=== PATIENT | male | born 1995 | race African-American/Black ===

== ENCOUNTER 2019-10-21 12:38 | Emergency (ER) | payer OTHER ==
[2019-10-21 12:47] VITALS: BP 120/75; PULSE 86; TEMP 102.9; BMI 20.7
[2019-10-21] MEDS ORDERED: IBUPROFEN 600 MG TABLET (FP) PO ONE ×2 (13:07→13:09)
--- NOTE | 2019-10-21 13:09 | PDOC ---
History of Present Illness - General Chief Complaint: Cold Symptoms Stated Complaint: COLD SYMPTOMS Time Seen by Provider: 10/21/19 12:51 - History of Present Illness Initial Comments: 10/21/19 13:11 Patient is a 24-year-old male who presents to the ED with fever, body aches, cough and sore throat for the last 4 to 5 days. He states his daughter had similar symptoms and he believes he got it from her. His girlfriend also has the same symptoms. He has been taking Tylenol and he took some about 3 hours ago. He denies any shortness of breath. The patient denies any past medical history or allergies to medications. He is a smoker. Past History - Past Medical History Allergies/Adverse Reactions: Allergies Allergy/AdvReac Type Severity Reaction Status Date / Time No Known Allergies Allergy Verified 10/21/19 12:47 Home Medications: Ambulatory Orders NK [No Known Home Medication] 10/21/19 COPD: No - Psycho Social/Smoking Cessation Hx Smoking History: Never smoked Review of Systems - Review of Systems Comments:: 10/21/19 13:12 - Review of Systems Able to Perform ROS?: Yes Constitutional: No: Chills, Loss of Appetite, Night Sweats, Weakness, Positive: Fever HEENTM: No: Eye Pain, Vision changes, Ear Pain, Throat Swelling, Mouth Pain, Difficulty Swallowing, Positive: Throat Pain Respiratory: No: Shortness of Breath, Wheezing, Sputum Production, Positive: Cough Cardiac (ROS): No: Chest Pain, Chest Tightness, Palpitations, Irregular Heart Beat, Edema ABD/GI: No: Nausea, Vomiting, Abdominal Pain, Diarrhea : No Dysuria, No Hematuria, No Frequency, No Urgency, No Vaginal Discharge/ Pain, No Penile Discharge/Pain Musculoskeletal: No: Muscle Pain, Back Pain, Joint Pain, Muscle Weakness, Neck Pain Integumentary: No: Lesions, Rash Neurological: No: Headache, Numbness, Tingling, Weakness, Speech Difficulties *Physical Exam - Vital Signs Last Vital Signs Temp Pulse Resp BP Pulse Ox 102.9 F H 86 18 120/75 99 10/21/19 12:45 10/21/19 12:45 10/21/19 12:45 10/21/19 12:45 10/21/19 12:45 - Physical Exam 10/21/19 13:13 - Physical Exam General Appearance: Nourished, Appropriately Dressed, No Distress HEENT: EOMI, Normal Voice, No Pharyngeal Erythema, No Muffled/Hoarse voice, No Tonsillar Exudate, No Tonsillar Erythema, No Nasal Congestion, No Rhinorrhea, Hearing Grossly Normal, b/l TMs obstructed by impacted cerumen Neck: Supple, No Lymphadenopathy (R), + anterior cervical Lymphadenopathy (L), No Rigidity, No Decreased range of motion Respiratory/Chest: Lungs Clear, Normal Breath Sounds. No Respiratory Distress, No Accessory Muscle Use Cardiovascular: Regular Rhythm, Regular Rate, S1, S2 Musculoskeletal: Normal Inspection. No Decreased Range of Motion Extremity: Normal Capillary Refill, Normal Inspection Integumentary: Normal Color, Dry. 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 He has been made aware that he likely has influenza but since he is 4 to 5 days since his symptoms started, he has not a candidate for Tamiflu. He has been encouraged to drink plenty of fluids, take Tylenol and ibuprofen for fevers or body aches and get plenty of rest. He should follow-up with his primary care doctor within 1 to 2 days for repeat evaluation. Discharge - Discharge Information Problems reviewed: Yes Clinical Impression/Diagnosis: Flu-like symptoms Fever Qualifiers: Fever type: due to other condition Qualified Code(s): R50.81 - Fever presenting with conditions classified elsewhere Condition: Stable Disposition: HOME - Follow up/Referral - Patient Discharge Instructions Patient Printed Discharge Instructions: DI for Viral Upper Respiratory Infection -- Adult Additional Instructions: Get plenty of rest and drink plenty of fluids. Take ibuprofen or Tylenol for fevers and body aches. Follow-up with your primary doctor within 1 to 2 days for repeat evaluation. You likely have the flu, but since her symptoms have been ongoing for 4 to 5 days you are not a candidate for Tamiflu treatment As the treatment should be started within the first 48 hours. - Post Discharge Activity Work/Back to School Note: Back to Work
== END 2019-10-21 13:18 | disposition home or self-care (01) ==
LOC: JERFT 12:38
DX: J11.1 Influenza due to unidentified influenza virus with other respiratory manifestations (principal); F17.210 Nicotine dependence, cigarettes, uncomplicated
CPT/HCPCS: 99282-25

== ENCOUNTER 2025-03-29 07:56 | Emergency (ER) | payer OTHER ==
[2025-03-29 08:02] VITALS: BP 138/74; PULSE 74; RESP 18; TEMP 97.8; BMI 22.3
[2025-03-29] MEDS ORDERED: IBUPROFEN 600 MG TABLET (FP) PO ONE (09:12)
[2025-03-29] MEDS ORDERED: LIDOCAINE 4% PATCH TP ONE (09:13)
[2025-03-29] MEDS ORDERED: CycloBENZAprine HCL 10 MG TABLET (FP) ONE (09:13)
[2025-03-29] MEDS: LIDOCAINE 4% PATCH TP ONE (09:20)
[2025-03-29] MEDS: IBUPROFEN 600 MG TABLET (FP) PO ONE (09:25)
[2025-03-29] MEDS: CycloBENZAprine HCL 10 MG TABLET (FP) PO ONE (09:25)
[2025-03-29 10:14] LABS: EPI CELLS 3 /uL (0-25.1); HYALINE CASTS 0 /uL (0-3.1); URINE APPEARANCE CLEAR; URINE BACTERIA 7 /uL (0-1359); URINE BILIRUBIN NEGATIVE (NEGATIVE); URINE COLOR YELLOW; URINE GLUCOSE (UA) NEGATIVE (NEGATIVE); URINE KETONE TRACE (NEGATIVE); URINE LEUK ESTERASE NEGATIVE (NEGATIVE); URINE NITRITE NEGATIVE (NEGATIVE); URINE PROTEIN TRACE (NEGATIVE); URINE RBC 29 /uL (0-23.9); URINE WBC 19 /uL (0-25.8)
[2025-03-29] MEDS ORDERED: LIDOCAINE PATCH REMOVAL MC SCH (22:00)
== END 2025-03-29 10:25 | disposition home or self-care (01) ==
LOC: JERFT 07:56
DX: M54.2 Cervicalgia (principal); M54.50 Low back pain, unspecified; V87.7XXA Person injured in collision between other specified motor vehicles (traffic), initial encounter; Y92.410 Unspecified street and highway as the place of occurrence of the external cause
CPT/HCPCS: 72100-TC-FY; 81003; 87086; 99284-25